=== PATIENT | female | born 1935 | race Caucasian/White ===

== ENCOUNTER 2016-04-30 23:03 | Emergency (ER) | payer MEDICARE, OTHER ==
[~2016-04-30] VITALS: Ht 167.6 cm; Wt 79.5 kg
[~2016-04-30 23:03] MED LIST: AMLO-39 PO; ATRV10T PO; CALC-743 PO; DABI150C2 PO; ESTR1PAT10 TD; FLC50T PO; LEVO125T2 PO; MAGNESIUM PO; MECL-114 PO; MEDR2.5T PO; METF500T4 PO; METO25T PO; MULT-1018 PO
[2016-04-30 23:04] VITALS: BP 202/86; PULSE 72; RESP 16; O2SAT 98
--- NOTE | 2016-04-30 23:19 | ED.REPORT ---
HPI-Chest Pain 40 and Over Date of Service Apr 30, 2016 ED Provider: Jaleel Ventura MD Patient is a 80 year old female with a history of paroxysmal atrial fibrillation on Pradaxa, diabetes mellitus, and hypertension who presents to the ED with intermittent chest pain for the past 6 hours. Patient states that the pain is sharp and substernal, occurring briefly every 10 minutes. Patient believes that her symptoms were due to indigestion and that she went to sleep. However, the patient awoke from sleep prior to arrival due to a racing heart beat. She was able to reduce her rate by walking around her home. She states that she also measured her blood pressure to be high, in the 170s systolic. She denies associated shortness of breath, nausea, or dizziness. Patient admits that her symptoms cause her stress and anxiety. Nursing Notes Stated Complaint: CHEST PAIN Chief Complaint: Chest Pain Nursing Notes Reviewed: Yes Allergies: Coded Allergies: Penicillins (Verified Allergy, Severe, 04/30/16) monosodium glutamate (Verified Allergy, Unknown, 04/30/16) Scheduled ([Magnesium]) 250 MG PO BID AmLODIPine-Expunged Drug, Do Not Renew! (AmLODIPine-Expunged Drug, Do Not Renew! ) 5 Mg Tablet 5 MG PO DAILY Atorvastatin-Expunged Drug, Do Not Renew! (Atorvastatin-Expunged Drug, Do Not Renew!) 10 Mg Tablet 10 MG PO DAILY Mello Carb/Vitamin D3-Expunged, Do Not Renew! (Calcium 500 + Vit D 200-Expunged, Do Not Ty) 1 Each Tablet 1 EACH PO BID Dabigatran-Expunged Drug, Do Not Renew! (Pradaxa-Expunged Drug, Do Not Renew!) 150 Mg Capsule 150 MG PO BID Famotidine (Pepcid) 20 Mg Tablet 20 MG PO BID Flecainide-Expunged Drug, Do Not Renew! (Tambocor-Expunged Drug, Do Not Renew!) 50 Mg Tablet 100 MG PO BID Levothyroxine-Expunged Drug, Do Not Renew! (Synthroid-Expunged Drug, Do Not Renew!) 125 Mcg Tablet 125 MCG PO DAILYAC 0.125 MG = 125 MCG MULTIVITAMIN-Expunged Drug, Do Not Renew! (MULTI VITAMIN -Expunged Drug, Do Not Renew!) 1 Each Tablet 1 EACH PO DAILY Meclizine (Bonine) 25 Mg Tab.chew 25 MG PO TID Medroxyprogesterone-Expunged Drug, Do Not Mata (Provera-Expunged Drug, Do Not Renew!) 2.5 Mg Tablet 2.5 MG PO DAILY Metformin-Expunged Drug, Do Not Renew! (Metformin-Expunged Drug, Do Not Renew!) 500 Mg Tablet 500 MG PO BIDAC CONTRAINDICATED: MALES SrCr 1.5 OR GREATER; FEMALES SrCr 1.4 ORGREATER ORCrCl <60; HOLD METFORMIN 48 HOURS AFTER IV CONTRAST ADMINISTRATION. Metoprolol Tart-Expunged Drug, Do Not Renew! (Metoprolol Tart-Expunged Drug, Do Not Renew!) 25 Mg Tablet 12.5 MG PO BID Miscellaneous Medications Estradiol-Expunged Drug, Do Not Renew! (Ubqzvpn-Lly-Ryqjvibg Drug, Do Not Renew! ) 1 Patch.bwk Patch.tdsw 1 PATCH.BWK TD 0.05MG/24 HOUR PATCH TWICE PER WEEK General Time Seen by MD: 23:19 Chief Complaint Chest pain Hx Obtained From: Patient Arrived By: Walk-in Sudden in Onset?: No Symptom Duration: Intermittent Location: : Substernal Quality: Stabbing Severity: Current: No pain currently Severity: Maximum: Moderate Recent Healthcare: No recent doctor visit, No recent hospitalization Similar Sx Previous: Yes Past Medical History Past Medical History Notes: PCP: Dr. Guy Past Medical History Atrial Fibrillation on Pradaxa Type 2 diabetes, non insulin dependent. Hypertension. Past Surgical History Reports: Tonsillectomy Smoking History Never Smoker Social History Alcohol Use: Denies alcohol use Drug Use: Denies drug use Other Social History: Good social support, , Local resident Ambulatory Status Independent Review of Systems Respiratory: Denies: Shortness of breath Cardiovascular: Reports: Chest pain, Palpitations GI: Denies: Nausea, Vomiting Neurologic: Denies: Dizziness Psychiatric: Reports: Anxiety, Stress Complete sys rev & neg: except as marked. Physical Exam Physical Exam Notes: Initial Vital Signs Vital Signs (First) Date Time Temp Pulse Resp B/P Pulse Ox O2 Delivery O2 Flow Rate FiO2 04/30/16 23:04 36.0 72 16 202/86 98 Room Air Initial VS: Reviewed Head / Eyes: Atraumatic, Normocephalic, PERRL ENT: Conjunctiva normal, No scleral icterus Neck: Supple, Full range of motion Skin: Warm, Dry, No cyanosis Neurologic: Alert, Oriented, Nonfocal Psychiatric: Mood/affect normal, Behavior normal, Normal thought content General/Constitutional: Awake, Alert, No acute distress Respiratory / Chest: Breath sounds NL, Breath sounds = bilat, No respiratory distress, No rales, No rhonchi, No wheezing, No chest tenderness (no tenderness over the left sternal costochondral joint) Cardiovascular: Heart rate NL, Regular rhythm, No gallop, No murmurs, No rubs Abdomen: Soft, Non-tender Lower Extremity / Pelvis / MS: No swelling, Non-tender, No edema Interpretation & Diagnostics Lab Results Interpretation Result Diagram: 04/30/16231904/30/162319 Test 04/30/16 23:20 White Blood Count 9.7th/mm3 (3.8-10.1) Red Blood Count 5.01mil/mm3 (3.90-5.20) Hemoglobin 15.8g/dL (12.0-15.6) Hematocrit 47.1% (35.0-46.0) Mean Corpuscular Volume 94.0fL (81-100) Mean Corpuscular Hemoglobin 31.5pg (27.0-35.0) Mean Corpuscular Hemoglobin Concent 33.5% (32.0-37.0) Red Cell Distribution Width 13.9% (12.3-15.4) Platelet Count 246bil/L (150-400) Neutrophils (%) (Auto) 69.3% (40-74) Lymphocytes (%) (Auto) 19.4% (14-46) Monocytes (%) (Auto) 7.7% (4-12) Eosinophils (%) (Auto) 3.2% (0-5) Basophils (%) (Auto) 0.2% (0-3) Erythrocyte Sedimentation Rate 4mm/hr (0-40) Prothrombin Time 10.8sec (8.1-12.5) Prothromb Time International Ratio 1.01ratio Sodium Level 138mEq/L (134-144) Potassium Level 4.1mEq/L (3.5-5.2) Chloride Level 98mEq/L (97-108) Carbon Dioxide Level 25mmol/L (18-29) Blood Urea Nitrogen 21mg/dL (8-27) Creatinine 0.88mg/dL (0.57-1.00) Estimat Glomerular Filtration Rate 88mL/min (>59) Glucose Level 155mg/dL (60-99) Calcium Level 9.9mg/dL (8.5-10.1) Magnesium Level 1.9mg/dL (1.6-2.6) Total Bilirubin 0.4mg/dL (0.0-1.2) Aspartate Amino Transf (AST/SGOT) 18U/L (0-50) Alanine Aminotransferase (ALT/SGPT) 16U/L (0-32) Alkaline Phosphatase 50U/L (25-165) Troponin T 0.010ug/L (0.0-0.011) Pro-B-Type Natriuretic Peptide 120.1pg/mL (0-738) Total Protein 7.5g/dL (6.4-8.4) Albumin 4.5g/dL (3.4-5.0) ECG Interpretation ECG Interpretation: Sinus rhythm, Rate 74 Prolonged SD interval Probable left ventricular hypertrophy Anterior Q waves, possibly due to LVH Incomplete LBBB Time: 23:29 Interpreted by: ED physician Normal ECG Interpretation: No change from prior ECGs (04/28/2015) X-Ray Chest Interpretation Chest Xray Interpretation: Impression: No acute cardiopulmonary process. View: Portable Interpretation / Wet Read by: Wet read ED physician Re-Eval/Medical Decision Med Decision/Clinical Course 80-year-old with paroxysmal A. fib on anticoagulation and antiarrhythmics. She presents with a sharp lancinating pain intermittently in her chest that has been going on for 6-7 hours. It is just momentary, and there has been no associated shortness of breath, chest pressure, vomiting, or diaphoresis. It is pleuritic and does hurt to breathe. Her EKG is nonacute, although baseline abnormal, and her enzymes after more than six hours of pain are negative. This is not cardiac in character, but lancinating and pleuritic, consistent with a pleural inflammation most probably. She is discharged in stable condition for follow-up with her PCP. Pepcid begun for acid control. Source of Hx: Old records Time of Eval: 00:29 Patient Status: Condition improved Re-Evaluation/Progress Note: Rechecked the patient. She reports one additional brief episode of pain since inital evaluation. She was ensured that her labs, chest x-ray, and EKG were normal. Patient admits that she is very stressed out and anxious, and that she needs something to calm her down. Patient also admits that whenever she goes to sleep she awakes every 2 hours. She knows that this is something that happens to other people that she knows as well. Patient is unsure why she wakes up. Patient states she does need to let her dog out to urinate often and that she has a lot on her mind. Patient also admits to having burning in her throat with certain medications. She is not on an antacid medication. Patient understands and agrees with the plan to be discharged home. Discharge instructions and follow-up discussed. All questions were addressed. Return to the ED warnings given. Counseled Regarding: Diagnosis, Lab results, Need for follow-up, When/why to return to ED Discharge & Departure Primary Impression: Non-cardiac chest pain Additional Impressions: Palpitations Hypertension Hypertension type: unspecified secondary hypertension Hypertension goal: unspecified goal Qualified Code: I15.9 - Secondary hypertension, unspecified Disposition: Home Discharge Condition All VS Reviewed: Yes Condition: Stable Patient Instructions: Chest Pain (ED), Costochondritis (ED), Relaxation and Meditation (ED) Additional Instructions: The source of your pain is pretty clearly noncardiac. It may be in the chest wall or the lining of the lung, but these sources of pain are not dangerous or life-threatening. Begin Pepcid twice daily for the next two weeks to see if it influences your discomfort. As far as sleep hygiene, I suggest avoiding fluids for two hours prior to bedtime, and taking a single extra strength Tylenol before bed to reduce aches and pains that may be waking you up. Follow-up with your doctor in the office. Return if any immediate issues, particularly prolonged palpitations or change in your chest pain or other new symptoms of concern Referrals: Bahman Whitehead (PCP) [place] Attestation Portions of this note were transcribed by Shawna Reyes. I, Dr. Ventura personally performed the history, physical exam and medical decision-making; I reviewed and confirmed the accuracy of the information in the transcribed note. Signed by: Joesph Schneider, 05/01/2016 0045 copies to: Bahman Whitehead Christopher W MD Apr 30, 2016 23:19 Shawna Reyes Apr 30, 2016 23:33
[2016-04-30] MEDS ORDERED: Pantoprazole 4 mg/mL 10 mL Inj IVPUSH ONE (23:30)
[2016-04-30] MEDS ORDERED: Ketorolac 15 mg/mL Inj IVPUSH ONE (23:30)
[2016-04-30 23:36] LABS: BASOPHILS % (AUTO) 0.2 % (0-3); EOSINOPHILS % (AUTO) 3.2 % (0-5); MONOCYTES % (AUTO) 7.7 % (4-12); Mean Corpuscular Hemoglobin 31.5 pg (27.0-35.0); NEUTROPHILS % (AUTO) 69.3 % (40-74); Platelet Count 246 bil/L (150-400)
[2016-04-30 23:53] LABS: INR 1.01 ratio
[2016-04-30 23:57] VITALS: BP 160/69; PULSE 68; RESP 18; O2SAT 96
[2016-05-01 00:04] LABS: Magnesium 1.9 mg/dL (1.6-2.6); TROPONIN T 0.01 ug/L (0.0-0.011)
[2016-05-01] MEDS ORDERED: FAMO20T PO (00:41)
[2016-05-01 01:15] VITALS: BP 162/54; PULSE 65; RESP 18; O2SAT 96
--- NOTE | 2016-05-01 07:31 | DRSVH ---
PROCEDURE: X-RAY CHEST ONE VIEW, PORTABLE ([id number]) INDICATIONS: Chest pain TECHNIQUE: One view of the chest was acquired. COMPARISON: [facility], CR, XR CHEST 1VW (PORTABLE), 04/28/2015, 7:08. [facility], CR, XR CHEST 2VW, 12/05/2014, 8:21. FINDINGS: Surgical changes and devices: None. Lungs and pleura: No pleural effusions or pneumothorax. Lungs are clear. Mediastinum: Mediastinal contours appear normal. Heart size is normal. Bones and chest wall: No suspicious bony lesions. Overlying soft tissues appear unremarkable. IMPRESSION: No acute process. Dictated by: Truong Lee M.D. on 05/01/2016 at 7:29 Approved by: Truong Lee M.D. on 05/01/2016 at 7:29
== END 2016-05-01 01:16 | disposition home or self-care (01) ==
LOC: SED 23:15
DX: R07.89 Other chest pain (principal); R00.2 Palpitations; I10 Essential (primary) hypertension; E11.9 Type 2 diabetes mellitus without complications; I48.0 Paroxysmal atrial fibrillation; Z79.01 Long term (current) use of anticoagulants; Z79.84 Long term (current) use of oral hypoglycemic drugs; Z88.0 Allergy status to penicillin
CPT/HCPCS: 36415; 71010; 80053; 82948; 83735; 83880; 84484; 85025; 85610; 85651; 93005; 96374; 96375; 99285; J1885

== ENCOUNTER 2016-09-26 23:33 | Emergency (ER) | payer MEDICARE, OTHER ==
[~2016-09-26 23:33] MED LIST changes: +FAMO20T PO
[2016-09-26 23:34] VITALS: BP 186/98; PULSE 82; RESP 18; O2SAT 99
--- NOTE | 2016-09-27 00:20 | ED.REPORT ---
HPI-General Illness Date of Service Sep 27, 2016 ED Provider: Dr. Ventura 80 y/o female with a hx of HTN, A-fib and anxiety presents to the ED complaining of intermittent palpitations for a few days. The pt states these episodes typically resolve within a few minutes but she was concerned today because her sx lasted longer. In the ED, however, her sx have resolved and she states "I feel fine now. I'm embarrassed to be here." Associated sx include pressure on the left upper back and shaking. She denies chest pain, shortness of breath, cough, nausea, vomiting, diaphoresis, abdominal pain and chest wall tenderness.The pt had a Holter monitor appointment scheduled today. Nursing Notes Stated Complaint: PALPITATIONS Chief Complaint: Chest Pain Nursing Notes Reviewed: Yes Allergies: Coded Allergies: Penicillins (Verified Allergy, Severe, 04/30/16) monosodium glutamate (Verified Allergy, Unknown, 04/30/16) Scheduled ([Magnesium]) 250 MG PO BID AmLODIPine-Expunged Drug, Do Not Renew! (AmLODIPine-Expunged Drug, Do Not Renew! ) 5 Mg Tablet 5 MG PO DAILY Atorvastatin-Expunged Drug, Do Not Renew! (Atorvastatin-Expunged Drug, Do Not Renew!) 10 Mg Tablet 10 MG PO DAILY Mello Carb/Vitamin D3-Expunged, Do Not Renew! (Calcium 500 + Vit D 200-Expunged, Do Not Ty) 1 Each Tablet 1 EACH PO BID Dabigatran-Expunged Drug, Do Not Renew! (Pradaxa-Expunged Drug, Do Not Renew!) 150 Mg Capsule 150 MG PO BID Famotidine (Pepcid) 20 Mg Tablet 20 MG PO BID Flecainide-Expunged Drug, Do Not Renew! (Tambocor-Expunged Drug, Do Not Renew!) 50 Mg Tablet 100 MG PO BID Levothyroxine-Expunged Drug, Do Not Renew! (Synthroid-Expunged Drug, Do Not Renew!) 125 Mcg Tablet 125 MCG PO DAILYAC 0.125 MG = 125 MCG MULTIVITAMIN-Expunged Drug, Do Not Renew! (MULTI VITAMIN -Expunged Drug, Do Not Renew!) 1 Each Tablet 1 EACH PO DAILY Meclizine (Bonine) 25 Mg Tab.chew 25 MG PO TID Medroxyprogesterone-Expunged Drug, Do Not Mata (Provera-Expunged Drug, Do Not Renew!) 2.5 Mg Tablet 2.5 MG PO DAILY Metformin-Expunged Drug, Do Not Renew! (Metformin-Expunged Drug, Do Not Renew!) 500 Mg Tablet 500 MG PO BIDAC CONTRAINDICATED: MALES SrCr 1.5 OR GREATER; FEMALES SrCr 1.4 ORGREATER ORCrCl <60; HOLD METFORMIN 48 HOURS AFTER IV CONTRAST ADMINISTRATION. Metoprolol Tart-Expunged Drug, Do Not Renew! (Metoprolol Tart-Expunged Drug, Do Not Renew!) 25 Mg Tablet 12.5 MG PO BID Miscellaneous Medications Estradiol-Expunged Drug, Do Not Renew! (Luxkmgv-Xlt-Bsqhxosi Drug, Do Not Renew! ) 1 Patch.bwk Patch.tdsw 1 PATCH.BWK TD 0.05MG/24 HOUR PATCH TWICE PER WEEK General Time Seen by MD: 00:20 Chief Complaint Other (Palpitations) Hx Obtained From: Patient Arrived By: Walk-in Sudden in Onset?: Yes Onset Occurred: 3 days ago Symptom Duration: 1 - 15 minutes Location: : Back (upper left) Quality: Pressure Radiation: : Does not radiate Severity: Current: Mild Severity: Maximum: Mild Recent Healthcare: No recent doctor visit Similar Sx Previous: Yes Past Medical History Past Medical History Notes: PCP: Dr. Guy Marketing Finance Specialist: Dr. Astudillo Past Medical History Atrial Fibrillation on Pradaxa Type 2 diabetes, non insulin dependent. Hypertension. Anxiety Grave's disease Past Surgical History Tonsillectomy Smoking History Never Smoker Social History Alcohol Use: Denies alcohol use Drug Use: Denies drug use Other Social History: Good social support, , Local resident Ambulatory Status Independent Review of Systems Reports: shaking Denies: chest wall tenderness Full Review of Systems Respiratory: Denies: Non-productive cough, Shortness of breath Cardiovascular: Reports: Palpitations (now resolved), Denies: Chest pain GI: Denies: Abdominal pain, Nausea, Vomiting Musculoskeletal: Reports: Back pain (Pressure in left upper back) Skin: Denies Diaphoresis Complete sys rev & neg: except as marked. Physical Exam Vital Signs Vital Signs Date Time Temp Pulse Resp B/P Pulse Ox O2 Delivery O2 Flow Rate FiO2 09/27/16 03:04 66 16 154/75 96 Room Air 09/26/16 23:34 36.8 82 18 186/98 99 Room Air Initial VS: Reviewed Head / Eyes: Atraumatic, Normocephalic Neck: Supple, Non-tender, Full range of motion Abdomen / GI: Soft, Non-tender Extremities: Vascular intact, Neuro intact, No swelling, No tenderness Skin: Warm, Dry, No cyanosis Neurologic: Alert, Oriented, Nonfocal General/Constitutional: Awake, Alert, Cooperative, Not toxic appearing Behavior: Positive: Anxious Respiratory / Chest: Atraumatic, Breath sounds NL, Breath sounds = bilat, No respiratory distress, No rales, No rhonchi, No wheezing Cardiovascular: Heart rate NL, Regular rhythm, Heart sounds NL, No gallop, No murmurs, No rubs Interpretation & Diagnostics Lab Results Interpretation Result Diagram: 09/27/160 09/27/16 0040 Test 09/27/16 00:40 White Blood Count 7.7th/mm3 (3.8-10.1) Red Blood Count 5.06mil/mm3 (3.90-5.20) Hemoglobin 15.8g/dL (12.0-15.6) Hematocrit 46.8% (35.0-46.0) Mean Corpuscular Volume 92.5fL (81-100) Mean Corpuscular Hemoglobin 31.2pg (27.0-35.0) Mean Corpuscular Hemoglobin Concent 33.8% (32.0-37.0) Red Cell Distribution Width 13.6% (12.3-15.4) Platelet Count 208bil/L (150-400) Neutrophils (%) (Auto) 61.7% (40-74) Lymphocytes (%) (Auto) 22.4% (14-46) Monocytes (%) (Auto) 7.5% (4-12) Eosinophils (%) (Auto) 7.7% (0-5) Basophils (%) (Auto) 0.4% (0-3) Prothrombin Time 10.7sec (8.1-12.5) Prothromb Time International Ratio 1.00ratio D-Dimer < 0.50mg/L FEU (<0.50) Sodium Level 138mEq/L (134-144) Potassium Level 4.4mEq/L (3.5-5.2) Chloride Level 100mEq/L (97-108) Carbon Dioxide Level 23mmol/L (18-29) Blood Urea Nitrogen 20mg/dL (8-27) Creatinine 0.96mg/dL (0.57-1.00) Estimat Glomerular Filtration Rate 80mL/min (>59) Glucose Level 141mg/dL (60-99) Calcium Level 9.6mg/dL (8.5-10.1) Magnesium Level 1.9mg/dL (1.6-2.6) Total Bilirubin 0.7mg/dL (0.0-1.2) Aspartate Amino Transf (AST/SGOT) 17U/L (0-50) Alanine Aminotransferase (ALT/SGPT) 14U/L (0-32) Alkaline Phosphatase 47U/L (25-165) Troponin T 0.010ug/L (0.0-0.011) Pro-B-Type Natriuretic Peptide 125.6pg/mL (0-738) Total Protein 7.3g/dL (6.4-8.4) Albumin 4.2g/dL (3.4-5.0) Thyroid Stimulating Hormone (TSH) 0.229uIU/mL (0.450-4.500) Free Thyroxine 1.58ng/dL (0.82-1.77) Hold Cho Top Tube Received (Received) ECG Interpretation ECG Interpretation: Normal sinus rhythm. Rate 76. Old Anterior Infarct. No acute changes from prior ECG on 04/30/16 Time: 23:50 Interpreted by: ED physician X-Ray Chest Interpretation Chest Xray Interpretation: Result: Hiatal hernia. No other acute findings. View: Portable, 1 view Interpretation / Wet Read by: Wet read ED physician Re-Eval/Medical Decision Med Decision/Clinical Course 80-year-old female presents with palpitations one of several episodes. These been self-limited and not reproduced here. She does have a background of Graves' disease on replacement. Also diabetes. She is asymptomatic throughout her stay, and monitoring here is negative for abnormalities. Electrolytes are unremarkable. TSH is slightly low and free thyroxine within normal limits, as is appropriate for her replacement. Referred back to Dr. Astudillo for completion of her Holter exam. Source of Hx: Old records Time of Eval: 01:00 Re-Evaluation/Progress Note: Rechecked pt. Discussed lab results, imaging results, diagnosis and plan to discharge. Pt understands and agrees with the plan. F/U instructions and RTER warning given. All questions addressed. Counseled Regarding: Diagnosis, Lab results, Need for follow-up, When/why to return to ED Discharge & Departure Primary Impression: Palpitations Disposition: Home Discharge Condition All VS Reviewed: Yes Condition: Stable Patient Instructions: Palpitations (ED) Additional Instructions: Follow-up with your doctor as planned. Have your Holter monitor placed today as planned. All of your studies tonight are reassuring. Dr. Astudillo will have access to your results this morning. Referrals: Bahman Whitehead (PCP) Barrett Astudillo MDibe Attestation Portions of this note were transcribed by Frannie Cruz. I, , personally performed the history, physical exam and medical decision- making;I reviewed and confirmed the accuracy of the information in the transcribed note. Signed by Joesph George. 09/27/16 02:37 copies to: Barrett Astudillo MD, Christopher W MD Sep 27, 2016 00:20 Frannie Cruz Sep 27, 2016 00:47
[2016-09-27 00:54] LABS: BASOPHILS % (AUTO) 0.4 % (0-3); EOSINOPHILS % (AUTO) 7.7 % (0-5); MONOCYTES % (AUTO) 7.5 % (4-12); Mean Corpuscular Hemoglobin 31.2 pg (27.0-35.0); Mean Corpuscular Volume 92.5 fL (81-100); NEUTROPHILS % (AUTO) 61.7 % (40-74); Platelet Count 208 bil/L (150-400)
[2016-09-27 01:25] LABS: D-Dimer < 0.50 mg/L FEU (<0.50)
[2016-09-27 01:56] LABS: Magnesium 1.9 mg/dL (1.6-2.6); TROPONIN T 0.01 ug/L (0.0-0.011)
[2016-09-27 03:04] VITALS: BP 154/75; PULSE 66; RESP 16; O2SAT 96
--- NOTE | 2016-09-27 09:32 | DRSVH ---
PROCEDURE: X-RAY CHEST ONE VIEW, PORTABLE ([id number]) INDICATIONS: palpitations TECHNIQUE: One view of the chest was acquired. COMPARISON: [facility], CR, XR CHEST 1VW (PORTABLE), 04/30/2016, 23:11. [facility], CR, XR CHEST 1VW (PORTABLE), 04/28/2015, 7:08. FINDINGS: Surgical changes and devices: None. Lungs and pleura: No pleural effusions or pneumothorax. Lungs are clear. Mediastinum: Mediastinal contours appear normal. Heart size is normal. Bones and chest wall: No suspicious bony lesions. Overlying soft tissues appear unremarkable. IMPRESSION: Normal. Dictated by: Yohan Wiley M.D. on 09/27/2016 at 9:31 Approved by: Yohan Wiley M.D. on 09/27/2016 at 9:31
== END 2016-09-27 03:02 | disposition home or self-care (01) ==
LOC: SED 23:33
DX: R00.2 Palpitations (principal); I10 Essential (primary) hypertension; I48.91 Unspecified atrial fibrillation; F41.9 Anxiety disorder, unspecified; E11.9 Type 2 diabetes mellitus without complications; R25.1 Tremor, unspecified; Z86.39 Personal history of other endocrine, nutritional and metabolic disease; Z79.84 Long term (current) use of oral hypoglycemic drugs; Z88.0 Allergy status to penicillin; Z88.8 Allergy status to other drugs, medicaments and biological substances
CPT/HCPCS: 11721; 36415; 71010; 80053; 83735; 83880; 84439; 84443; 84484; 85025; 85378; 85610; 93005; 99285; G0463